=== PATIENT | male | born 1985 | race Caucasian/White ===

== ENCOUNTER 2017-01-30 15:10 | Emergency (ER) | payer OTHER ==
[~2017-01-30] VITALS: Ht 162.6 cm; Wt 51.2 kg
[~2017-01-30 15:10] MED LIST: NO ROUTINE MEDS
[2017-01-30 15:13] VITALS: TEMP 98.8; Ht 162.6 cm; Wt 51.2 kg
--- NOTE | 2017-01-30 15:30 | NUR ---
UPDATE RN TO BEDSIDE TO SPEAK WITH PATIENT. PATIENT UNWILLING TO SPEAK WITH RN. PATIENT CHANGED INTO A GOWN AND BELONGINGS PLACED IN BACK, IN POSESSION OF NURSE.
--- NOTE | 2017-01-30 15:52 | NUR ---
LAB LAB AT BEDSIDE FOR BLOOD DRAW
--- NOTE | 2017-01-30 15:56 | ERPDOC ---
Departure Disposition Decision Date: January 30, 2017 Disposition Decision Time: 17:48 Disposition: 01 DISCHARGED HOME, SELF-CARE Impression Impression Impression: Primary Impression: Anxiety Severity: Moderate Condition: Stable Seen By: Mid-level only Patient Instructions: Anxiety (ED) Problems/Meds/Labs Reviewed?: Yes Medications reviewed and manag: Yes Additional Instructions: Take your Sertraline as prescribed. I do want you to follow up with the [facility] tomorrow for a refill of your medication. If you should have any change in your ability to keep yourself safe or any increased thoughts of self harm then return to ER. Follow up care ordered?: Yes Mental Status: Alert, Oriented Scripts Sertraline (Sertraline) 25 Mg Tablet 25 MG PO DAILY, #5 TAB 0 Refills Prov: KRISTEN HENAO [employer] PROFESSIONAL 01/30/17 HPI - Psychosocial General Chief Complaint: Suicide Ideation/Attempt Stated Complaint: SUICIDAL Time Seen by MD: 15:41 Source: patient Exam Limitations: no limitations HPI - Psychosocial Initial Comments He is brought in today by PD and his child protective services social worker. His child protective services social worker showed up at his house today and he told his child protective services social worker that he was wanting to kill himself. He then tried to walk off and so his SW called PD who brought him to Er. He does confirm to this practitioner that he is having thoughts of wanting to kill himself. He does state that he has a plan but when asked what his plan is he state "I dont know". He has had SI in the past but has never had an attempt. He states that he has been admitted to the [facility] in [place] for SI in the past. He denies any ingestion today. Occurred At: home Onset: Gradual Duration: 6-12 hrs Severity: moderate Associated Symptoms: suicidal ideation, DENIES: anxiety, impaired concentration , ingestion, injury, insomnia Hx of Similar Symptoms: No Allergies: Coded Allergies: No Known Allergies (Unverified , 01/30/17) Past History Past Medical History Psychological: anxiety, depression, drug abuse, suicide attempt Surgical History Denies Surgeries Family History Family History: Negative Social History Smoking Status: Never smoker Substance Use Type: methamphetamine Alcohol Intake: none Review of Systems Constitutional Constitutional: DENIES: chills, dizziness, fatigue, fever, weakness Cardiovascular Cardiac: DENIES: chest pain, orthopnea Rhythm/Rate: DENIES: irregular beat, palpitations Pulmonary Respiratory: DENIES: cough, dyspnea, sputum GI Upper Abdomen: DENIES: nausea, pain, vomiting Lower Abdomen: DENIES: constipation, diarrhea, pain Integumentary Skin: DENIES: rash Neurological General: DENIES: headache, numbness, tingling, weakness Physical Exam General General Nourishment: well nourished, well developed, appears stated age, no acute distress, adult General Body Habitus: well groomed Vitals and Pain First Documented Vital Signs Date Time Temp Pulse Resp B/P Pulse Ox O2 Delivery O2 Flow Rate FiO2 01/30/17 15:13 98.8 67 16 131/83 98 Room Air Weight: Kilograms: 51.200 Height (feet): 5 Height (inches): 4.00 Triage Pain Scale: RN VS reviewed by Provider: Yes Normal Exams: Eyes: Pupils are PERRLA w/ EOMI, No scleral icterus, irritation, or foreign bodies noted ENMT: No facial trauma, nasal exudates, pharyngeal erythema, or exudates are noted Neck: Full range of motion, without adenopathy, JVD, bruits or thyromegaly Chest/Resp: Clear all magallon, with good airflow, and symmetry bilaterally CV: Regular rate and rhythm, without murmur or gallop, Pulses 2+ all extremities, capillary refill, <2 seconds all ext., no pedal edema noted Abdomen: Bowel sounds positive, soft, non-tender, non-distended, no hepatosplenomegaly, masses or bruits noted Lymphatic: No lymphadenopathy, or lymphedema noted Integumentary: No rashes, hives, or bruising noted Neurologic: Patient is alert, and oriented, cranial nerves, motor/sensory/ cerebellar, exams w/o gross deficits, to observation Psychiatric: Patient exhibits, appropriate attention, emotion and affect Differential Diagnoses Considering: Anxiety, Depression, Alcohol Intoxication, Joan, Suicidal Attempt , Suicidal Ideation Progress Results/Orders Orders Procedure Category Date Status Time Salicylate LAB 01/30/17 Complete Acetaminophen LAB 01/30/17 Complete Ethanol LAB 01/30/17 Complete Drug Screen LAB 01/30/17 Complete Urine-Test At [facility] [place] 15:42 Ua, Dip Wreflex LAB 01/30/17 Complete Microsc & Lead Setter 15:42 Cbc W/Auto LAB 01/30/17 Complete Diff-Reflex Manual Bmp - Basic Metabolic LAB 01/30/17 Complete Panel Lab Results Laboratory Tests Test 01/30/17 15:55 01/30/17 16:41 White Blood Count 12.9T/MM3 Red Blood Count 5.21M/MM3 Hemoglobin 14.8GM/DL Hematocrit 42.8% Mean Corpuscular Volume 82.1UM3 Mean Corpuscular Hemoglobin 28.4UUG Mean Corpuscular Hemoglobin Concent 34.6GM/DL RDW Standard Deviation 41.3FL Platelet Count 431T/MM3 Mean Platelet Volume 9.5UM3 Immature Granulocyte % (Auto) 0.3% Neutrophils (%) (Auto) 61.6% Lymphocytes (%) (Auto) 28.5% Monocytes (%) (Auto) 6.1% Eosinophils (%) (Auto) 3.1% Basophils (%) (Auto) 0.4% Absolute Immature Granulocyte (auto 0.04T/MM3 Absolute Neutrophils (auto) 8.0T/MM3 Absolute Lymphocytes (auto) 3.7T/MM3 Absolute Monocytes (auto) 0.8T/MM3 Absolute Eosinophils (auto) 0.4T/MM3 Absolute Basophils (auto) 0.1T/MM3 Turbidity < 20 Sodium Level 143MEQ/L Potassium Level 4.1MEQ/L Chloride Level 108MEQ/L Carbon Dioxide Level 25MEQ/L Anion Gap 10MEQ/L Blood Urea Nitrogen 10.0MG/DL Creatinine 0.8MG/DL Glomerular Filtration Rate Calc 113 BUN/Creatinine Ratio 13RATIO Glucose Level 116MG/DL Calculated Osmolality 275MOSM/KG Calcium Level 9.3MG/DL Icterus Index < 2 Chemistry Specimen Hemolysis < 15 Salicylates Level < 1.0MG/DL Acetaminophen Level < 10UG/ML Alcohol, Quantitative <10MG/DL Urine Collection Type Cleancatch-midstream Urine Color Yellow Urine Turbidity Sl cloudy Urine pH 5.5 Urine Specific [place] >=1.030 Urine Protein Negative Urine Glucose (UA) Negative Urine Ketones Negative Urine Blood Negative Urine Nitrite Negative Urine Bilirubin Negative Urine Urobilinogen 0.2EU/DL Urine Leukocyte Esterase Trace Urinalysis Comment Microscopic not ind. Urine Opiates Screen NegativeNG/ML Urine Oxycodone Screen NegativeNG/ML Urine Methadone Screen NegativeNG/ML Urine Propoxyphene Screen NegativeNG/ML Urine Barbiturates Screen NegativeNG/ML Urine Tricyclic Antidepressants NegativeNG/ML Urine Phencyclidine Screen NegativeNG/ML Urine Amphetamines Screen NegativeNG/ML Urine Methamphetamines Screen PositiveNG/ML Urine Benzodiazepines Screen NegativeNG/ML Urine Cocaine Screen NegativeNG/ML Urine Cannabinoids Screen NegativeNG/ML Urine Drug Screen Confirmation Sent out Urine Drug Screen Information Pending Progress Progress [id number] Spoke with Ra COFFMAN at [facility] in [place] regarding admission. Does request to have information faxed to their facility for review for admission. Noted CBC , BMP, UA, ETOH, ASA, and Acet is negative. UDS is positive for meth. Patient is currently agitated and does want to leave ER. Alesha YAO here in ER and did speak with patient. He does advise that he was mad because he wanted his child protective services social [facility] but he would not take him. He states that he is not suicidal and he does want to live for his daughter whom he plans to see this weekend. He does not have a plan to kill himself. If he can get a Rx for his Sertraline then his child protective services social worker can [facility] [place] [facility]ine. Did discuss these statements with Alesha YAO and she does feel he is safe to go home. He does commit to safety and will notify the ER if he should have a change in his symptoms. KRISTEN HENAO APRN January 30, 2017 15:56
[2017-01-30 16:02] LABS: BASOPHILS # (AUTO) 0.1 T/MM3 (0-0.2); BASOPHILS % (AUTO) 0.4 % (0-2); EOSINOPHILS # (AUTO) 0.4 T/MM3 (0-0.5); EOSINOPHILS % (AUTO) 3.1 % (0-4); HCT - HEMATOCRIT 42.8 % (41-53); HGB - HEMOGLOBIN 14.8 GM/DL (13.5-17.5); IMMATURE GRANULOCYTE # (AUTO) 0.04 T/MM3 (0.00-0.03); IMMATURE GRANULOCYTE % (AUTO) 0.3 % (0.0-0.5); LYMPHOCYTES # (AUTO) 3.7 T/MM3 (1-4.8); LYMPHOCYTES % (AUTO) 28.5 % (23-45); MEAN CORPUSCULAR HGB 28.4 UUG (26-34); MEAN CORPUSCULAR HGB CONC(MCHC 34.6 GM/DL (31-37); MEAN CORPUSCULAR VOLUME 82.1 UM3 (80-100); MEAN PLATELET VOLUME 9.5 UM3 (9.4-12.4); MONOCYTES # (AUTO) 0.8 T/MM3 (0-0.8); MONOCYTES % (AUTO) 6.1 % (0-9.0); NEUTROPHILS % (AUTO) 61.6 % (33-66); RED BLOOD COUNT 5.21 M/MM3 (4.50-5.90); WBC - WHITE BLOOD COUNT 12.9 T/MM3 (4.5-11.0)
[2017-01-30 16:11] LABS: ACETAMINOPHEN < 10 UG/ML (10-30); ANION GAP 10 MEQ/L (5-15); BUN/CREATININE RATIO 13 RATIO (6-26); CALCIUM 9.3 MG/DL (8.4-10.2); CHLORIDE 108 MEQ/L (98-107); CO2 - CARBON DIOXIDE 25 MEQ/L (22-30); CREATININE 0.8 MG/DL (0.8-1.5); ETHANOL <10 MG/DL (<10); GLOMERULAR FILTRATION RATE 113; GLUCOSE 116 MG/DL (75-110); POTASSIUM 4.1 MEQ/L (3.6-5); SALICYLATE < 1.0 MG/DL (2-20); SODIUM 143 MEQ/L (134-144)
--- NOTE | 2017-01-30 16:20 | NUR ---
INTAKE PT IS GIVEN WATER, SANDWICH AND CHIPS AT THIS TIME.
--- NOTE | 2017-01-30 16:39 | NUR ---
ACTIVITY PATIENT AMBULATORY TO RESTROOM WITH LAB PERSONNEL TO PROVIDE UA
[2017-01-30 16:47] LABS: BLOOD, URINE NEGATIVE (NEGATIVE); COLOR,URINE YELLOW (YELLOW); LEUKOCYTE ESTERASE ,URINE TRACE (NEGATIVE); NITRITE,URINE NEGATIVE (NEGATIVE); UROBILINOGEN,URINE 0.2 EU/DL (NORMAL)
[2017-01-30 16:55] LABS: AMPHETAMINE SCREEN,URINE NEGATIVE; BARBITURATE SCREEN,URINE NEGATIVE; BENZODIAZEPINES SCREEN,URINE NEGATIVE; CANNABINOID SCREEN,URINE NEGATIVE; COCAINE SCREEN,URINE NEGATIVE; METHADONE SCREEN, URINE NEGATIVE; METHAMPHETAMINE SCREEN, URINE POSITIVE; OPIATE SCREEN,URINE NEGATIVE; PHENCYCLIDINE SCREEN,URINE NEGATIVE; TRICYCLIC ANTIDEPRESSANT,URINE NEGATIVE
[2017-01-30] MEDS ORDERED: SERT25TA5 PO (18:08)
[2017-01-30 18:31] VITALS: BP 127/69; PULSE 71; RESP 12; O2SAT 98
--- NOTE | 2017-01-30 18:31 | NUR ---
[facility] WAS CONTACTED PER THE PT'S REQUEST TO GIVE HIM A RIDE HOME, AFTER THEY REPORT IT WILL BE 2000 BEFORE SOMEONE CAN TRANSPORT HIM PT DECIDES HE WOULD LIKE TO WALK HOME EVEN AFTER HE IS INFORMED OF THE INCLEMENT WEATHER AT THIS TIME. DISCHARGE INSTRUCTIONS ARE REVIEWED AND UNDERSTANDING IS VOICED, PT LEAVES AMBULATORY AT THIS TIME.
== END 2017-01-30 18:31 | disposition home or self-care (01) ==
LOC: ED 15:10
DX: R45.851 Suicidal ideations (principal); F41.9 Anxiety disorder, unspecified; Z79.899 Other long term (current) drug therapy
CPT/HCPCS: 36415; 80048; 80306; 80307; 81003; 85025